=== PATIENT | female | born 1950 | race Caucasian/White ===

== ENCOUNTER → 2025-06-27 10:29 | Outpatient (CLI) | payer MEDICARE, OTHER, SELFPAY ==
--- NOTE | 2025-06-27 10:37 | DI.MRI.S_ITS ---
PROCEDURE: MR KNEE LT WO CON INDICATIONS: Chronic left knee pain TECHNIQUE: Noncontrast sagittal PD fast spin echo and T2 fast spin echo with fat saturation, sagittal 3-D FLASH with fat saturation; coronal T1 spin echo and PD fast spin echo with fat saturation, and axial PD fast spin echo with fat saturation through the knee. COMPARISON: None. FINDINGS: Image quality: Excellent. Menisci: Marked abnormal appearance of the lateral meniscus. Complex tear is of the mid body into the posterior horn with possible fragment flipped laterally and on the coronal images the meniscus is displaced laterally. Horizontal tear into the anterior horn and posterior -lateral meniscocapsular separation. Radial tear of the posterior horn of the medial meniscus (coronal series 13 image 20; axial series 8, image 20). Cruciate ligaments: Mild increased T2 weighted signal and thinning of the mid and distal anterior cruciate ligament, injury/strain but with intact fibers without complete tear or retraction. Posterior cruciate ligament is normal. Medial structures: Mild increased T2 weighted signal surrounding the medial collateral ligament mid and distal aspect grade 1 injury. The semimembranosus tendon insertion is normal. Visualized portions of the pes anserinus tendons appear normal. No abnormal bursal fluid. Lateral structures: Moderate diffuse increased T2 weighted signal with areas thickening proximally and thinning distally of the lateral collateral ligament. Heterogeneous increased T2 weighted signal/edema and partial tear of the distal muscle belly of the popliteus with thickening and increased T2 weighted signal of the popliteus tendon distally, injury/strain. Increased T2 weighted signal and thickening of the distal long and short heads of the biceps femoris tendon, tendinopathy. [id number] edema surrounding the distal iliotibial band without complete tear or retraction. Anterior structures: Mild lateral subluxation up to 5 mm of the patella. Mild nonspecific edema in the infrapatellar fat pad and edema of the bone of the inferior patella at the patellar tendon insertion. The quadriceps and patellar tendons appear intact. Bones and cartilage: No MR evidence of fracture line. Moderate diffuse cartilaginous thinning in the medial and lateral patellar facets and in the medial and lateral compartments without distinct focal cartilage defect. Joint space: Moderate knee joint effusion. No significant popliteal cyst. IMPRESSION: Complex tear of the lateral meniscus as discussed above. Radial tear medial meniscus. Tendinopathy versus partial tears of the popliteus muscle and tendon, lateral collateral ligament, distal biceps tendon and posterior-lateral meniscocapsular separation, a constellation of findings suggesting posterolateral corner injury. Other findings as above. Dictated by: Ismael Liz M.D. on 06/28/2025 at 9:04 Approved by: Ismael Liz M.D. on 06/28/2025 at 9:25
== END ==
LOC: MRI 10:34
PROVIDERS: Referring Provider Student in an Organized Health Care Education/Training Program; Visit Provider Student in an Organized Health Care Education/Training Program
DX: S83.272A Complex tear of lateral meniscus, current injury, left knee, initial encounter (principal); S83.242A Other tear of medial meniscus, current injury, left knee, initial encounter; S83.012A Lateral subluxation of left patella, initial encounter; R60.0 Localized edema; M25.562 Pain in left knee; G89.29 Other chronic pain
CPT/HCPCS: 73721